=== PATIENT | female | born 1965 | race Caucasian/White ===

== ENCOUNTER 2016-07-13 06:46 | Day surgery (SDC) | payer OTHER ==
[~2016-07-13] VITALS: Ht 157.5 cm; Wt 81.2 kg
[2016-07-13] MEDS ORDERED: CLINDAMYCIN PHOS 600 MG/ D5W 50 ML PREMIX IV ONE (07:00)
[2016-07-13 08:19] LABS: HCG,QUAL RESULT NEGATIVE (NEGATIVE)
[2016-07-13] MEDS ORDERED: IOHEXOL 50 ML IV ONE (11:01)
[2016-07-13] MEDS ORDERED: LR 1,000 ML IV SCH (11:14)
[2016-07-13] MEDS ORDERED: MEPERIDINE HCL/PF 25 MG/ML DISP.SYRIN IVP PRN (11:15)
[2016-07-13] MEDS ORDERED: HYDROmorphone 1 MG INJ. 1 MG/ML AMPUL IVP PRN ×2 (11:15→12:00)
[2016-07-13] MEDS ORDERED: HYDROmorphone 2 MG/ML VIAL IVP PRN ×2 (11:15)
[2016-07-13] MEDS ORDERED: D5/0.45 NS 1,000 ML IV SCH (11:47)
[2016-07-13] MEDS ORDERED: HYDROcodone/ACETAMIN 5-325 MG TAB (NORCO/ VICODIN) PO PRN ×2 (12:00)
[2016-07-13 12:40] VITALS: BP_SYST 114
[2016-07-13] MEDS ORDERED: HYDROcodone/ACETAMIN 5-325 MG TAB (NORCO/ VICODIN) ONE (12:50)
[2016-07-13] MEDS ORDERED: METOCLOPRAMIDE HCL 10 MG/2 ML VIAL ONE (14:00)
[2016-07-13] MEDS ORDERED: ONDANSETRON HCL 4 MG/2 ML VIAL ONE (14:00)
[2016-07-13] MEDS ORDERED: ROCURONIUM BROMIDE 10 MG/ML (ZEMURON) ONE (14:00)
[2016-07-13] MEDS ORDERED: KETOROLAC TROMETHAMINE 30 MG VIAL ONE (14:00)
[2016-07-13] MEDS ORDERED: DEXAMETHASONE SOD PHOSPHATE 4 MG/ML VIAL ONE (14:00)
[2016-07-13] MEDS ORDERED: LR 1,000 ML IV.SOLN IV ONE (14:00)
[2016-07-13] MEDS ORDERED: PROPOFOL 200MG/ 20ML VIAL (DIPRIVAN) IV ONE (14:00)
[2016-07-13] MEDS ORDERED: SEVOFLURANE 15 MIN GAS INH ONE (14:00)
[2016-07-13] MEDS ORDERED: fentaNYL CITRATE 250 MCG/5 ML AMP ONE (14:00)
[2016-07-13] MEDS ORDERED: MIDAZOLAM HCL 5 MG/5 ML VIAL ONE (14:00)
[2016-07-13] MEDS ORDERED: NS IRRIG SOLN 1000 ML IR ONE (14:00)
== END 2016-07-13 15:10 | disposition home or self-care (01) ==
LOC: SDS 06:46 → SMU 07:44 → SDS 15:10
PROVIDERS: ATTEND Colon & Rectal Surgery
DX: K80.10 Calculus of gallbladder with chronic cholecystitis without obstruction (principal); I10 Essential (primary) hypertension; E11.9 Type 2 diabetes mellitus without complications; E66.9 Obesity, unspecified; K76.0 Fatty (change of) liver, not elsewhere classified
CPT/HCPCS: 47563; 76000; 84703; 88304; C1727; C1758; J1100; J1885; J2250; J2405; J2704; J2765; J3010; J3490; J7120; Q9967